=== PATIENT | male | born 1955 | race Caucasian/White ===

== ENCOUNTER 2017-02-23 16:25 | Emergency (ER) | payer BC, OTHER ==
[~2017-02-23 16:25] MED LIST: ASA5GR PO; ASAB PO; ASABAYER PO; CELEXA40 MG PO; CLARIT10 PO; COMBIVENT RESPIM4 GM INH; K-TABS10 MEQ PO; LEXAPRO20 PO; LIPITOR80 MG PO; LOTREL1 CA4 PO; MOTRIN IB200 MG PO; NASONEX NAS; PLAVIX PO; PRILO PO; PRILOSEC40 MG PO; ROZEREM8 MG PO; TAMBOCOR150 MG PO; [UNRECOGNIZED DRUG - OTHER] PO
[2017-02-27] MEDS ORDERED: CELEXA20 PO (14:29)
[2017-02-27] MEDS ORDERED: PRILOSEC40 MG PO (14:30)
[2017-02-27] MEDS ORDERED: HYDROCHLOROT25 MG PO (14:33)
[2017-02-27] MEDS ORDERED: ABILIFY5 PO (14:33)
== END 2017-02-23 16:49 | disposition home or self-care (01) ==
LOC: ER 16:25
DX: S81.812A Laceration without foreign body, left lower leg, initial encounter (principal); I48.91 Unspecified atrial fibrillation; Z95.0 Presence of cardiac pacemaker; Z86.73 Personal history of transient ischemic attack (TIA), and cerebral infarction without residual deficits; Z88.5 Allergy status to narcotic agent; Z91.09 Other allergy status, other than to drugs and biological substances; Z79.899 Other long term (current) drug therapy; X58.XXXA Exposure to other specified factors, initial encounter
CPT/HCPCS: 93971; 99283